=== PATIENT | female | born 1990 | race Caucasian/White ===

== ENCOUNTER 2017-02-14 14:24 | Day surgery (SDC) | payer OTHER ==
[~2017-02-14] VITALS: Ht 160 cm; Wt 63.5 kg
[2017-02-14] MEDS ORDERED: BIRTH CONTROL (14:57)
[2017-02-14 15:00] VITALS: Ht 160 cm; Wt 63.5 kg
[2017-02-14 16:31] VITALS: BP 112/74; PULSE 96; RESP 22
--- NOTE | 2017-02-14 17:04 | OPPN ---
Date/Time of Note Date/Time of Note DATE: 02/14/17 TIME: 17:01 Proc Note GI Free Text/Dictation Procedure Date: 02/14/2017 Preoperative Diagnosis: * Constipation Postoperative Diagnosis: * Normal colonic mucosa to cecum * Small internal hemorrhoids of no clinical significance Plan: * High-fiber diet plus MiraLAX * If constipation does not improve on that regimen consider Linzess or Amitiza Procedure Performed: Colonoscopy Surgeon: Humberto Muse MD Husker Operator: None Second Cordwood Cutter: None Anesthesia/Sedation moderate sedation Versed 5 mg fentanyl 75 mcg Tourniquet Time: NA Estimated Blood Loss: None Transfusion Required: No Specimens: None Grafts/Implants: None Tubes/Drains: NA Complications: None Pt. Condition Post Procedure: Stable Disposition: Home After informed consent, with the patient/relatives understanding the procedure, its indications and potential risks and complications, including but not limited to: Allergic reaction, bleeding, perforation, infection, and after all pertinent questions were answered to the patient's satisfaction, the patient/ relatives signed the witnessed informed consent. Following this, premedication was administered slowly IV push under careful cardiovascular and respiratory monitoring with pulse OXIMETRY, automatic blood pressure, and special services director. Once the sedative effect was achieved, the patient was placed in the left lateral decubitus position, digital rectal examination was performed. The colonoscope was then introduced and advanced under visual control throughout all segments of the colon including: the rectum, sigmoid, descending colon, splenic flexure, transverse colon, hepatic flexure, ascending colon and finally reaching the cecum which was clearly identified by transillumination, finger indentation and the ileocecal valve. Careful examination of the mucosa of the lower gastrointestinal tract both on insertion as well as withdrawal of the instrument disclosed the following findings: PREPARATION QUALITY: [Adequate], RECTAL EXAM: The anorectal area was visualized examined and digital rectal examination performed with the following findings: No evidence of perirectal disease, no masses. COLONIC MUCOSA: The mucosa of all segments of the colon was carefully examined and showed the following findings: the examined mucosa appears within normal limits. There is no evidence of inflammatory changes, diverticular formation, polyps or other neoplasms, vascular malformation, or any other abnormality. Small internal hemorrhoids The instrument was then withdrawn, the patient tolerated the procedure well and was transferred out of the Endoscopy Suite awake and in good condition to continue recovery under observation. Procedure date: Feb 14, 2017 HUMBERTO MUSE MD Feb 14, 2017 17:04
[2017-02-14] MEDS ORDERED: FENTAnyl 50 MCG/ML VIAL ONE (17:16)
[2017-02-14] MEDS ORDERED: MIDAZOLAM 1 MG/ML 2 ML INJ ONE ×3 (17:16)
[2017-02-14 17:22] VITALS: BP 95/61; PULSE 82; RESP 14
== END 2017-02-14 18:19 | disposition home or self-care (01) ==
LOC: GIL 14:24
PROVIDERS: ATTEND Internal Medicine Gastroenterology
DX: K59.00 Constipation, unspecified (principal); K64.8 Other hemorrhoids
CPT/HCPCS: 45378; 84703; J2250; J3010; Z7610

== ENCOUNTER 2017-05-26 17:56 | Emergency (ER) | payer OTHER ==
[~2017-05-26] VITALS: Ht 160 cm; Wt 66.1 kg
[~2017-05-26 17:56] MED LIST: BIRTH CONTROL
[2017-05-26 17:59] VITALS: Ht 160 cm; Wt 66.1 kg
[2017-05-26] MEDS ORDERED: DIPHENHYDRAMINE 50 MG INJ IM ONE (20:00)
[2017-05-26] MEDS ORDERED: DEXAMETHASONE 10 MG/ML 1 ML INJ IM ONE (20:00)
[2017-05-26] MEDS ORDERED: FAMOTIDINE 20 MG TAB PO ONE (20:00)
[2017-05-26] MEDS ORDERED: MED4DP PO (20:46)
--- NOTE | 2017-05-26 23:19 | ERD ---
ER Documentation Chief Complaint Chief Complaint swelling on face since last night , no sob after using hair dye yesterday HPI This patient is a 26-year-old otherwise healthy female presenting to the emergency department with complaints of swelling to her forehead and lower eyes bilaterally which occurred after having her hair bleached. Symptoms have worsened today. She did take Benadryl 50 mg yesterday which only slightly relieved the symptoms. Overall symptoms are intermittent but worsening. She has had similar symptoms in the past when she was allergic to a type of food. She denies any wheezing, difficulty breathing, feeling of her throat closing, fevers, chills, or other symptoms at this time. ROS All systems reviewed and are negative except as per history of present illness. Medications Home Meds Active Scripts Methylprednisolone* (Medrol* DOSE PACK) 4 Mg/Dose-Pack Tab.ds.pk, 4 MG PO . DIRECTED, #1 PACKET Prov:COLLINS MORENO PA-C 05/26/17 Reported Medications [ Control] No Conflict Check 02/14/17 Allergies Allergies: Coded Allergies: No Known Allergy (Unverified , 02/14/17) PMhx/Soc Medical and Surgical Hx: pt denies Medical Hx, pt denies Surgical Hx History of Surgery: No Anesthesia Reaction: No Hx Neurological Disorder: No Hx Respiratory Disorders: No Hx Cardiac Disorders: No Hx Psychiatric Problems: No Hx Miscellaneous Medical Probl: No Hx Alcohol Use: No Hx Substance Use: No Hx Tobacco Use: No Smoking Status: Never smoker Physical Exam Vitals Vital Signs Date Time Temp Pulse Resp B/P Pulse Ox O2 Delivery O2 Flow Rate FiO2 05/26/17 17:59 97.6 92 18 133/70 100 Physical Exam Const: Nontoxic, well-appearing female in no acute distress. Head: Atraumatic Eyes: Normal Conjunctiva ENT: Normal External Ears, Nose and Mouth. No submental edema. The airway is clear. Neck: Full range of motion..~ No meningismus. Resp: Clear to auscultation bilaterally. No signs of respiratory distress. No wheezing. Cardio: Regular rate and rhythm, no murmurs Abd: Soft, non tender, non distended. Normal bowel sounds Skin: There is some suborbital edema noted bilaterally. There is edema noted to the forehead. No rashes noted. Ext: No cyanosis, or edema Neur: Awake and alert Psych: Normal Mood and Affect Results 24 hrs Current Medications Medications (Trade) Dose Ordered Sig/Ryan Route PRN Reason Start Time Stop Time Status Last Admin Dose Admin Dexamethasone (Decadron) 10 mg ONCE ONCE IM 05/26/17 20:00 05/26/17 20:01 DC 05/26/17 20:15 Diphenhydramine HCl (Benadryl) 50 mg ONCE ONCE IM 05/26/17 20:00 05/26/17 20:01 DC 05/26/17 20:15 Famotidine (Pepcid) 20 mg ONCE ONCE PO 05/26/17 20:00 05/26/17 20:01 DC 05/26/17 20:15 Procedures/MDM Patient is a pleasant 26-year-old female presenting to the emergency department with complaints of facial edema after having her hair bleached yesterday. The patient was treated in the department with IM Decadron and IM Benadryl. She was feeling slightly improved prior to discharge. The patient was advised to return immediately for any new or worsening symptoms. Low suspicion for airway involvement, King-Shabbir syndrome, anaphylaxis, or other emergencies. Patient will be given a prescription for Medrol Dosepak. No evidence of life- threatening pathology at time of discharge. Pt/family in agreement with discharge plan/diagnosis. Pt/family advised to return immediately with any new or worsening symptoms. Follow-up with primary care physician within the next 1- 2 days. Departure Diagnosis: Primary Impression: Facial edema Condition: Fair Patient Instructions: Allergic Reaction, Other (General) Additional Instructions: Call your primary care doctor TOMORROW for an appointment during the next 1-2 days.See the doctor sooner or return here if your condition worsens before your appointment time. COLLINS MORENO PA-C May 26, 2017 23:19
== END 2017-05-26 21:09 | disposition home or self-care (01) ==
LOC: FTE 17:56
DX: R60.0 Localized edema (principal)
CPT/HCPCS: 96372; J1100; J1200; Z7502; Z7610